=== PATIENT | male | born 1995 | race Two or more races ===

== ENCOUNTER 2020-11-15 11:44 | Emergency (ER) | payer OTHER, SELFPAY ==
--- NOTE | 2020-11-15 | ECG_ITS ---
Test Reason : CHEST PAIN Blood Pressure : / mmHG Vent. Rate : 055 BPM Atrial Rate : 055 BPM P-R Int : 158 ms QRS Dur : 110 ms QT Int : 408 ms P-R-T Axes : 002 009 014 degrees QTc Int : 390 ms Sinus bradycardia Incomplete left bundle branch block Borderline ECG No previous ECGs available Referred By: Brandon Perez Electronically Signed By:Ernesto Salas
[2020-11-15 11:53] VITALS: BP 140/62; BP 148/74; PULSE 57; PULSE 60; RESP 12; TEMP 36.6; O2SAT 100; O2SAT 97; BMI 34.1
--- NOTE | 2020-11-15 12:49 | ED.CHESTPAIN ---
HPI - Chest Pain General Chief Complaint: Chest Pain Stated Complaint: cp/nausea Time Seen by Provider: 11/15/20 12:10 Source: patient Mode of arrival: EMS Limitations: no limitations History of Present Illness HPI narrative: 25-year-old male who presents emergency department for evaluation of dizziness, chest pain and hypertension. The patient states that he was working out in the gym this morning at around 5:50 a.m. when he had a sudden onset of room spinning dizziness. Patient states he was doing his usual workup routine and was using dumbbells when the symptoms began. He states that the dizziness lasted approximately 5 minutes and then resolved. The patient stopped working out and went home. He states that then went to work at around 9:00 a.m. when he had a 2nd episode of room spinning dizziness. He states that he was just walking around the building at the time. He went to see the school nurse who took his blood pressure and it was elevated at 140 5/95. He states he then developed a headache which was brief, located in the frontal part of his head, he had left-sided chest pain which was sharp that lasted approximately 10 minutes then resolved. He went back to see the school nurse and his blood pressure was elevated 160/100, he then developed nausea and vomiting and was transported to the emergency department by ambulance. The patient states that he was in his usual state of health until the above symptoms started, he denied fever, chills, numbness, weakness, abdominal pain, changes bowel movements or change in his urine habits. The patient states that he was COVID-19 positive in September of 2020. He has not been vaccinated for COVID-19. Related Data Previous Rx's Medication Instructions Recorded ondansetron 4 mg PO Q6-8H PRN #14 tab 11/15/20 Allergies Allergy/AdvReac Type Severity Reaction Status Date / Time No Known Allergies Allergy Verified 11/15/20 12:46 Review of Systems Review of Systems: Yes all other systems are reviewed and are negative [facility] Past Medical History [facility] Narrative: Patient has a history of hypertension but he intentionally lost 100 lb and no longer needs to take antihypertensive medications, has a history of migraine headache as well. He denies tobacco, alcohol and drug use. Medical History (Updated 11/15/20 @ 13:01 by Brandon Perez MD) COVID-19 Social History Social History Smoked in Last 30 Days: No Use of substances other than those prescribed or required for medical reasons: No Advance Directives: No Advance Directives Information Provided: No Physical Exam Vital Signs: Vital Signs: Last Vital Signs Temp 97.9 F 11/15/20 11:53 Pulse 57 11/15/20 11:53 Resp 12 11/15/20 11:53 BP 148/74 H 11/15/20 11:53 Pulse Ox 97 11/15/20 11:53 Body Mass Index 34.1 Const: General: cooperative and healthy appearing Orientation/consciousness: oriented to person and oriented to place Limitations: no limitations HENMT: Head: Yes normal to inspection, Yes normocephalic and Yes atraumatic Ears: external ears normal General nose exam: Normal external nose present Face and sinus: Yes normal facial exam Mouth: Normal oral and palatal mucosa present Throat: Yes posterior oropharynx normal Eyes: Periorbital: periorbital findings normal Eyelids: Yes eyelids normal Conjunctivae: conjunctivae normal Sclerae: sclerae normal Corneas: corneas normal Pupils: Equal, round and reactive pupils present EOM: EOMs intact bilaterally and Nystagmus present (Fast component to the left) Direct Ophthalmoscopy: normal light reflex Neck: Neck: Yes full ROM, Yes no lymphadenopathy, Yes no meningeal signs, Yes trachea midline and Yes supple Chest: Chest palpation & inspection: normal inspection of the chest and normal palpation of entire chest wall Resp: Effort & Inspection: normal respiratory effort and able to speak in complete sentences Auscultation: clear to auscultation bilaterally Cardio: Rate: regular rate Rhythm: regular rhythm Heart sounds: S1 normal heart sound present, S2 normal heart sound present and no murmurs GI: Inspection: Yes normal to inspection Palpation (GI): Soft to palpation, nontender, no guarding, not rigid and No hepatosplenomegaly present : General: Yes no CVA tenderness Back/Spine/Pelvis: Back: no CVA tenderness Cervical Spine: normal cervical lordosis Thoracic/Lumbar Spine: thoracic and lumbar spine normal to inspection Skin: Lesions: no lesions Rashes: no rashes Wounds: no wounds Neuro: General: oriented to person, oriented to place and no meningeal signs Cranial nerves: Yes CN's II-XII intact bilaterally, Yes Equal, round and reactive pupils present and Yes Nystagmus present (Fast component to the left) Cognition (Neuro): normal cognition Motor exam (neuro): 5/5 motor strength present throughout Coordination: other (Positive Maxim's maneuver with head turned to the left) Extrem: General: Yes normal to inspection and Yes full ROM Psych: Appearance: well kempt Mental Status: mental status grossly normal Speech and movement: Normal speech and movement present Affect: normal affect Attitude: cooperative Thought process: Normal thought process present Thought content: Normal thought content present Course Course Course Narrative: 25-year-old male who presents emergency department for evaluation of hypertension, chest pain and dizziness. The patient's physical examination did reveal lateral nystagmus and the patient had easily inducible vertigo with position change (positive [place]'s maneuver with head turn to the left). The patient's blood pressures in the emergency department did not reflect significant hypertension. The patient was treated with Zofran 4 mg orally and meclizine 25 mg orally. He was given verbal and printed instructions on benign positional vertigo, he was given a note not to return to work for 3 days. MDM - Chest Pain ECG Data ECG #1: Attestation: I personally reviewed and interpreted this ECG as follows: Interpretation: 1212: Sinus bradycardia with a rate of 55, normal MA and QTC intervals, slightly prolonged QRS interval of 100 milliseconds, inverted T-wave in lead 3 and V1, no ST segment elevation or depression, no old EKG for comparison. Except for the bradycardia, this is a normal EKG. Discharge Plan Discharge Clinical Impression: Chest pain Qualifiers: Chest pain type: other chest pain Qualified Code(s): R07.89 - Other chest pain Benign positional vertigo Qualifiers: Laterality: left Qualified Code(s): H81.12 - Benign paroxysmal vertigo, left ear Patient Disposition: Home, Self-Care Instructions: Benign Paroxysmal Positional Vertigo (ED) Additional Instructions: Your EKG was unremarkable. Your physical examination is consistent with positional vertigo (dizziness that is triggered by changing the position of your head). This is usually self-limiting and gets better in 1-2 weeks. The symptoms are usually worse over the 1st 1-3 days. For dizziness take Dramamine ( meclizine ) 25 mg 3 times a day. For nausea and vomiting take Zofran (ondansetron) 4 mg oral dissolvable tablets, 1 tablet dissolved in your mouth every 6-8 hours as needed. Follow-up with your doctor in 2 days. Please return to the emergency department if your symptoms get worse or if you develop any symptoms that are concerning to you. No work for 3 days. Prescriptions: New ondansetron 4 mg tablet,disintegrating 4 mg PO Q6-8H PRN (Reason: nausea and vomiting) Qty: 14 RF: 0 Stand Alone Forms: Work/School Release
[2020-11-15 13:01] VITALS: BP 132/63; PULSE 66; RESP 12; O2SAT 98
[2020-11-15] MEDS: Meclizine HCl 25 MG TABLET PO (13:03)
== END 2020-11-15 13:12 | disposition home or self-care (01) ==
PROVIDERS: Emergency Provider Emergency Medicine Emergency Medical Services
DX: R07.89 Other chest pain (principal); H81.12 Benign paroxysmal vertigo, left ear
CPT/HCPCS: 93005; 99283; 99284